=== PATIENT | male | born 1995 | race Caucasian/White ===

== ENCOUNTER 2018-08-10 22:43 | Emergency (ER) | payer SELFPAY ==
[2018-08-10 22:45] VITALS: BP 115/76; PULSE 63; RESP 18; TEMP 36.8; O2SAT 100; BMI 21.9
--- NOTE | 2018-08-10 22:59 | ED.VISSUMM ---
- ER Visit Summary Date of Service: 08/10/18 Chief Complaint: Left wrist foreign body History of Present Illness: The patient is a 23 M who believes he has a foreign body in his left wrist. He thinks is a metal shard from his work. He states he wiped his arm on his pants and there was a metal shard there and he believes it went into his skin. He tried to remove it on his own but was unable to. His last tetanus is unknown. Physical Examination: Vital signs reviewed. Left wrist exam reveals no palpable foreign body. He does have some abrasions on his wrist where he tried to remove the foreign body himself. No active bleeding. Pulses and sensations are intact. Test Results: Left wrist x-ray reveals a foreign body in the skin of the volar left wrist. Emergency Department Course and Treatment: Under sterile conditions we anesthetized the area. We used ultrasound to help guide as to where the foreign body was located. We did make a roughly 1 cm horizontal incision to help locate the foreign body. We were then able to remove it. Repeat x-rays show no evidence of foreign body retained. 2, 5?0 simple nylon sutures were placed to close the wound. I will place the patient on Keflex. His tetanus was updated. He will have sutures out in 7-10 days Treatment Plan: [] Disposition: Discharge Impression: Foreign body, left wrist Foreign body removal This note was generated with erento dictation software. It may contain incorrect words, spelling, and punctuation that were not noted in review of the chart prior to signing ED Disposition - Plan for ED Patient: Referrals: Shu Horne MD [Primary Care Provider] -
--- NOTE | 2018-08-10 22:59 | ED.RN ---
pt reports to this rn that he does not want to file workers comp even though his injury occurred at work.
--- NOTE | 2018-08-10 23:06 | RAD_ITS ---
STUDY: X-RAY - LEFT WRIST REASON FOR EXAM: Male, 23 years old. Foreign body left wrist TECHNIQUE: 3 view(s) of the wrist were obtained. COMPARISON: None. FINDINGS: Normal visualized distal radius and ulna. Normal radiocarpal articulation. Normal distal radioulnar articulation. Normal carpal bones. Normal carpal articulations. Normal carpometacarpal articulation of the thumb. Normal second through fifth carpometacarpal articulations. Normal visualized metacarpal bones. The soft tissue structures are unremarkable. Linear hyperdensity volar aspect of the wrist measures 12 mm and appears superficial. RAD/Wrist min 3 Views IMPRESSION: Metallic radiodensity volar aspect wrist Electronically Signed: Fawad Chiang MD at 23:27 EST , Service support ,
[2018-08-10] MEDS: Diphth,Pertuss(Acell),Tet Vac 0.5 ML Vial IM (23:15)
--- NOTE | 2018-08-10 23:45 | RAD_ITS ---
STUDY: X-RAY - LEFT WRIST REASON FOR EXAM: Male, 23 years old. Foreign body removal. TECHNIQUE: 1 view(s) of the wrist were obtained. COMPARISON: None. FINDINGS: Normal visualized distal radius and ulna. Normal radiocarpal articulation. Normal distal radioulnar articulation. Normal carpal bones. Normal carpal articulations. Normal carpometacarpal articulation of the thumb. Normal second through fifth carpometacarpal articulations. Normal visualized metacarpal bones. The soft tissue structures are unremarkable. RAD/Wrist 2 Views IMPRESSION: Normal x-ray examination of the wrist. Foreign body has been successfully removed. Electronically Signed: Chandan Nelson MD at 0:37 EST , Service support ,
--- NOTE | 2018-08-10 23:55 | ED.DEP ---
ED Disposition - Plan for ED Patient: Disposition: Home or Assisted Living Instructions: ED Foreign Body Soft Tissue Removed Prescriptions: Cephalexin [Keflex] 500 mg PO Q12 #10 cap Referrals: Shu Horne MD [Primary Care Provider] -
[2018-08-11] MEDS: Cephalexin 250 MG Capsule 500 MG PO (00:08)
[2018-08-11 00:14] VITALS: BP 106/78; PULSE 59; RESP 15; O2SAT 99
== END 2018-08-11 00:21 | disposition home or self-care (01) ==
PROVIDERS: Emergency Provider Emergency Medicine; Family Provider Pediatrics; PCP Pediatrics
DX: S60.852A Superficial foreign body of left wrist, initial encounter (principal); S60.812A Abrasion of left wrist, initial encounter; W45.8XXA Other foreign body or object entering through skin, initial encounter; X58.XXXA Exposure to other specified factors, initial encounter; Y93.9 Activity, unspecified; Y92.9 Unspecified place or not applicable
CPT/HCPCS: 10120; 73100; 73110; 90471; 90715; 99285